=== PATIENT | female | born 1990 | race Caucasian/White ===

== ENCOUNTER → 2020-10-17 10:46 | Outpatient (CLI) | payer OTHER, MEDICAID, SELFPAY ==
[2020-10-17 11:48] LABS: COVID19 -Nasal RAPID Negative (Negative)
== END ==
PROVIDERS: Family Provider Obstetrics & Gynecology; PCP Obstetrics & Gynecology; Visit Provider Physician Assistant
DX: Z11.59 Encounter for screening for other viral diseases (principal)
CPT/HCPCS: 87635

== ENCOUNTER → 2021-03-13 08:17 | Outpatient (CLI) | payer OTHER, MEDICAID, SELFPAY ==
--- NOTE | 2021-03-13 08:20 | DI.MG.S_ITS ---
BILATERAL DIGITAL DIAGNOSTIC MAMMOGRAM 3D/2D: 03/13/2021 CLINICAL: Baseline exam. Left breast lump. No prior exams were available for comparison. There are scattered fibroglandular elements in both breasts. No significant masses, calcifications, or other findings are seen in either breast. Specifically, no finding to correspond to the patient's palpable abnormality. IMPRESSION: INCOMPLETE: NEEDS ADDITIONAL IMAGING EVALUATION There is no abnormality seen in the left breast to correspond with the palpable abnormality and pain indicated by triangular markers at 1 o'clock in the middle depth. Ultrasound is recommended for full evaluation of this area. This was performed immediately following this exam. This exam was interpreted at Station ID: [id number]. NOTE: For mammograms, a report in lay terms will be sent to the patient. Approximately 15% of breast malignancies will not be visualized mammographically. In the management of a palpable breast mass, a negative mammogram must not discourage biopsy of a clinically suspicious lesion. Electronically Signed By: Mohini donovan/:03/13/2021 09:34:42 ACR BI-RADS Category 0: Incomplete 3340F
--- NOTE | 2021-03-13 08:20 | DI.US.S_ITS ---
ULTRASOUND OF LEFT BREAST: 03/13/2021 CLINICAL: Patient returns for additional imaging over a suspected mass in the left breast. Comparison is made to exam dated: 03/13/2021 [facility]. Real-time ultrasound of the left breast was performed. Posada scale images of the real-time examination were reviewed. No significant abnormalities were seen sonographically in the left breast. Specifically, no finding to correspond to the patient's palpable abnormality. IMPRESSION: NEGATIVE There is no sonographic correlate to the patient's palpable abnormality and no evidence of malignancy. Screening mammography beginning at age 40 is recommended. Findings and recommendations were conveyed to the patient at time of exam. This exam was interpreted at Station ID: [id number]. Electronically Signed By: Mohini donovan/:03/13/2021 10:55:30 letter sent: Normal Exam Ultrasound BI-RADS: 1 Negative
== END ==
PROVIDERS: Family Provider Obstetrics & Gynecology; PCP Nurse Practitioner Family; Referring Provider Nurse Practitioner Family; Visit Provider Nurse Practitioner Family
DX: R92.8 Other abnormal and inconclusive findings on diagnostic imaging of breast (principal); N63.21 Unspecified lump in the left breast, upper outer quadrant
CPT/HCPCS: 76642; 77066; G0279

== ENCOUNTER 2021-06-29 22:05 | Emergency (ER) | payer OTHER, MEDICAID, SELFPAY ==
[2021-06-29 22:43] VITALS: BP 124/75; PULSE 80; RESP 18; TEMP 36.3; O2SAT 100; BMI 33.4
[2021-06-29] MEDS: TET,DIPH,PERTUSS(ACELL),VAC/PF 0.5 ML SYRINGE IM (23:02)
[2021-06-30] MEDS: BACITRACIN OINT 0.9 GM PCKT 5 APPLIC TOP (04:25)
--- NOTE | 2021-06-30 04:26 | PC.NURSE ---
On laceration placed non stick gauze, wrapped in tube guaze. on burn placed not stick gauze wrapped with kerlix.
[2021-06-30 04:27] VITALS: BP 127/78; PULSE 72; RESP 17; O2SAT 98
--- NOTE | 2021-06-30 23:10 | ED.WOUNDLAC ---
HPI - Wound/Laceration General Chief Complaint: Wound/Laceration Stated Complaint: right index finger cut and top of hand burn Time Seen by Provider: 06/30/21 03:20 Source: patient Mode of arrival: Ambulatory Limitations: no limitations History of Present Illness HPI narrative: Otherwise healthy 31-year-old woman presents with laceration to the dorsum of the right index finger from a knife sustained while she was at work. Yesterday she had some hot turkey gravy spill over the dorsal portion of her thumb/thenar eminence with the 2nd degree burn over that area. The blistering has popped and there is no extending cellulitis. Related Data Home Medications Medication Instructions Recorded Confirmed ibuprofen 200 mg tablet 1,000 mg PO #0 06/13/17 02/28/21 Previous Rx's Medication Instructions Recorded fesoterodine 4 mg tablet,extended 4 mg PO DAILY #90 tab 02/28/21 release 24 hr (Toviaz) norethindrone acetate 1 mg-ethinyl 1 tab PO DAILY #63 tab 02/28/21 estradiol 20 mcg tablet (Loestrin) valacyclovir 500 mg tablet 500 mg PO DAILY #90 tab 02/28/21 albuterol sulfate 90 mcg/actuation 2 puff INHALATION Q4-6H PRN #8.5 g 03/09/21 aerosol inhaler cephalexin 500 mg capsule 500 mg PO TID 5 Days #15 cap 06/30/21 Allergies Allergy/AdvReac Type Severity Reaction Status Date / Time cortisone [CORTISONE] Allergy Unknown Verified 06/29/21 22:43 morphine [MORPHINE] Allergy Unknown Verified 06/29/21 22:43 Review of Systems Review of Systems Narrative: Remainder of complete review of systems is otherwise unremarkable except for that included in the HPI. Patient History Medical History Breast lump on left side at 5 o'clock position (08/2020) Encounter for Routine Gynecological Examination (03/02/21) Exposure to COVID-19 virus Herpes simplex type 1 infection Mild asthma without complication Ovarian cyst Overactive bladder (~2004) URI (upper respiratory infection) Varicose veins of both lower extremities Wears glasses Family History Grandfather Hypertension Hyperlipidemia Stroke Grandmother Hypertension Social History Smoking Status: Current every day smoker second hand exposure: No alcohol intake: current (rare) substance use type: does not use Smoking Status: Current every day smoker alcohol intake frequency: a few times a month Substance Use Type: does not use Exam Narrative Exam Narrative: General: Alert appropriate in no acute distress Respiratory: Able to speak in full sentences, no obvious respiratory distress Skin: No obvious rashes, warm and dry Neurologic: Grossly intact no obvious asymmetries or abnormalities Psych: appropriate insight and affect, cooperative Extremity: Right index finger with 1.5 cm laceration over the dorsal portion of the PIP joint. On the left-hand over the dorsal portion of the thenar eminence there is an approximately 3 x 4 cm second-degree burn Initial Vital Signs Initial Vital Signs: Vital Signs Temperature 97.3 F L 06/29/21 22:43 Pulse Rate 80 06/29/21 22:43 Respiratory Rate 18 06/29/21 22:43 Blood Pressure 124/75 06/29/21 22:43 Pulse Oximetry 100 06/29/21 22:43 Procedures Laceration Repair Right index finger: Site: hand Side (If applicable): right Size (cm): 1.5 Description: linear Depth: simple, single layer Local Anesthetic: lidocaine 1% Amount of anesthesia used (mL): 4 Pre-repair: wound explored and irrigated extensively Skin layer closed with: nylon Size (cm): 4-0 Number of sutures: 2 Course Orders Ordered: Discontinued Medications Bacitracin (Bacitracin Oint 0.9 Gm Pckt) 5 applic TOP NOW ONE Stop: 06/30/21 04:00 Last Admin: 06/30/21 04:25 Dose: 5 applic Documented by: PIO Diphtheria/Tetanus/Acell Pertussis (Tet,Diph,Pertuss(Acell),Vac/Pf 0.5 Ml Syringe) 0.5 ml IM .ONCE ONE Stop: 06/29/21 22:49 Last Admin: 06/29/21 23:02 Dose: 0.5 ml Documented by: CHERYL MDM - Wound/Laceration MDM Narrative Medical decision making narrative: 31-year-old woman with a cut to the right index finger using a knife while at work. Burn to the left hand that is dressed with bacitracin also sustained at work. No evidence of complicating factors or infection at this time. L&I forms are filled out. She is safe for home discharge Discharge Plan Departure Patient Disposition: Home Clinical Impression: Laceration, Burn of second degree of back of left hand, initial encounter Instructions: DI for Adame, DI for Laceration Repair Activity Restrictions/Additional Instructions: Thank you for coming in today The cut on your right index finger did required 2 stitches. Because this is over a joint, I am going to recommend that you have them removed in about 10 days, on are round July 10. Keep the wound covered and using triple antibiotic ointment will be helpful. For the burn on your left hand will heal nicely. Please keep the entire area covered with antibiotic ointment to allow the new skin cells to grow in and prevent a thick scab. If either wound appears to be come infected, please start 5 days of Keflex. I have given you a prescription and hopefully you will not need to have it filled Using 400 mg of ibuprofen (2 [id number] pills) and 1 Tylenol every 6 hours can be very helpful in controlling pain. This combination is more effective than 600 or 800 mg of ibuprofen and has fewer side effects. If you have any new or worsening symptoms, please return to the ER Prescriptions: New cephalexin 500 mg capsule 500 mg PO TID 5 Days Qty: 15 RF: 0 No Action ibuprofen 200 MG tablet 1,000 mg PO Qty: 0 RF: 0 albuterol sulfate 90 mcg/actuation HFA aerosol inhaler 2 puff inhalation Q4-6H PRN (Reason: bronchospasm) Qty: 8.5 RF: 0 Toviaz 4 mg tablet extended release 24 hr 4 mg PO DAILY Qty: 90 RF: 2 norethindrone ac-eth estradiol [Loestrin 12/21 (21)] 1-20 mg-mcg tablet 1 tab PO DAILY Qty: 63 RF: 3 valacyclovir 500 mg tablet 500 mg PO DAILY Qty: 90 RF: 2 Referrals: Lori Razo ARNP [Primary Care Provider] -
== END 2021-06-30 04:28 | disposition home or self-care (01) ==
PROVIDERS: Emergency Provider Emergency Medicine; Family Provider Obstetrics & Gynecology; PCP Nurse Practitioner Family
DX: S61.210A Laceration without foreign body of right index finger without damage to nail, initial encounter (principal); T23.262A Burn of second degree of back of left hand, initial encounter; W26.0XXA Contact with knife, initial encounter; Z23 Encounter for immunization; Y99.0 Civilian activity done for income or pay
CPT/HCPCS: 12001; 90471; 99283; 90715